=== PATIENT | female | born 1970 | race Caucasian/White ===

== ENCOUNTER → 2023-08-21 06:34 | Day surgery (SDC) | payer OTHER, SELFPAY | LOC: GI 06:34 | PROVIDERS: ATTENDING PHYSICIAN Specialist | DX: Z12.11 Encounter for screening for malignant neoplasm of colon (principal); K63.5 Polyp of colon; K57.30 Diverticulosis of large intestine without perforation or abscess without bleeding; K31.89 Other diseases of stomach and duodenum; D50.9 Iron deficiency anemia, unspecified; R11.2 Nausea with vomiting, unspecified; Z86.010 Personal history of colon polyps; Z98.84 Bariatric surgery status | CPT/HCPCS: 45380; 43239; 88305 ==

== ENCOUNTER → 2023-09-11 10:56 | Outpatient (REF) | payer OTHER, SELFPAY | LOC: MRI 3T 10:56 | PROVIDERS: ATTENDING PHYSICIAN Specialist; FAMILY PHYSICIAN Physician Assistant Medical | DX: K76.9 Liver disease, unspecified (principal) | CPT/HCPCS: 74183; A9575 ==

== ENCOUNTER → 2024-10-20 13:19 | Outpatient (REF) | payer OTHER, SELFPAY | LOC: HWWDC 13:19 | PROVIDERS: ATTENDING PHYSICIAN Obstetrics & Gynecology Gynecology; FAMILY PHYSICIAN Physician Assistant Medical | DX: Z12.31 Encounter for screening mammogram for malignant neoplasm of breast (principal) | CPT/HCPCS: 77063; 77067 ==

== ENCOUNTER → 2024-11-08 06:37 | Outpatient (REF) | payer OTHER, SELFPAY | LOC: MRI 06:37 | PROVIDERS: ATTENDING PHYSICIAN Orthopaedic Surgery Hand Surgery; FAMILY PHYSICIAN Physician Assistant Medical | DX: M25.512 Pain in left shoulder (principal) | CPT/HCPCS: 73221 ==